=== PATIENT | male | born 1975 | race Caucasian/White ===

== ENCOUNTER 2016-12-31 19:58 | Emergency (ER) | payer BC ==
[2016-12-31 20:09] VITALS: BP 118/75
--- NOTE | 2016-12-31 20:11 | EDM.PDOC ---
ED HPI GENERAL MEDICAL PROBLEM - General Chief Complaint: Lower Extremity Injury/Pain Stated Complaint: Right Hip Pain; no injury Time Seen by Provider: 12/31/16 20:10 Source of Information: Reports: Patient, Family, RN, RN Notes Reviewed History Limitations: Reports: No Limitations - History of Present Illness INITIAL COMMENTS - FREE TEXT/NARRATIVE: Patient presents to the ED at [facility] complaining of significant right hip pain that started about one week ago. Patient denies any injury or trauma. No recent right hip surgeries. Patient states he did see his chiropractor earlier this week. It did seem to help after adjustment for about an hour, but then the pain returned. Patient denies any right lower leg swelling or pain. Pain does not radiate. Pain is a dull ache with no movement. Patient states he does get in and out of a vehicle several times a day. It is painful to walk. He feels the most pain around the greater trochanter area. Patient is currently taking Coumadin for a history of blood clots. Patient states his last INR one week ago was 3.2. Onset: Gradual Duration: Constant, Waxing/Waning Location: Reports: Lower Extremity, Right Quality: Reports: Ache, Throbbing Severity: Moderate Improves with: Reports: Rest Worsens with: Reports: Movement Context: Denies: Activity, Exercise, Lifting, Sick Contact, Trauma Associated Symptoms: Reports: No Other Symptoms Right Hip Pain Score (Numeric/FACES): 8 - Related Data Allergies Allergy/AdvReac Type Severity Reaction Status Date / Time No Known Allergies Allergy Verified 12/31/16 20:11 Home Meds: Home Meds Propranolol [Inderal LA] 160 mg PO DAILY 01/29/16 [History] Rizatriptan Benzoate [Maxalt] 10 mg PO ASDIRECTED PRN 01/29/16 [History] Warfarin [Coumadin] 3 mg PO DAILY 01/29/16 [History] busPIRone [Buspar] 15 mg PO DAILY 01/29/16 [History] Past Medical History Neurological History: Reports: Migraines - Past Surgical History Cardiovascular Surgical History: Reports: Valve Replacement Social & Family History - Family History Family Medical History: Noncontributory - Tobacco Use Smoking Status *Q: Never Smoker Tobacco Use Within Last Twelve Months: No - Tobacco Core Measures Tobacco Use/Smoking Within Last 30 Days: No - Alcohol Use Alcohol Use History: No Alcohol Use in Last Twelve Months: No - Recreational Drug Use Recreational Drug Use: No Drug Use in Last 12 Months: No - Living Situation & Occupation Living situation: Reports: , with Family Occupation: Employed Review of Systems - Review of Systems Review Of Systems: See Below Constitutional: Denies: Chills, Fever, Weakness Respiratory: Denies: Shortness of Breath, Cough Cardiovascular: Denies: Chest Pain, Palpitations Musculoskeletal: Reports: Joint Pain (Right hip), Muscle Pain, Muscle Stiffness. Denies: Leg Pain Skin: Reports: No Symptoms Neurological: Reports: No Symptoms. Denies: Numbness, Paresthesia, Tingling, Difficulty Walking ED EXAM, GENERAL - Physical Exam Exam: See Below Exam Limited By: No Limitations General Appearance: Alert, No Apparent Distress Respiratory/Chest: No Respiratory Distress, Lungs Clear, Normal Breath Sounds Cardiovascular: Regular Rate, Rhythm Peripheral Pulses: 2+: Posterior Tibial (R), Dorsalis Pedis (R) Extremities: Normal Inspection, Limited Range of Motion (Right hip due to pain) , Other (Patient has adequate ROM but is painful in all directions) Neurological: Alert, Oriented Skin Exam: Warm, Dry, Intact, Normal Color, No Rash Course - Vital Signs Last Recorded V/S: Last Vital Signs Temp 37.1 C 12/31/16 20:04 Pulse 69 12/31/16 20:04 Resp 14 12/31/16 20:04 BP 118/75 12/31/16 20:04 Pulse Ox 96 12/31/16 20:04 - Orders/Labs/Meds Orders: Active Orders 24 hr Category Date Time Status Hip Min 2V or 3V Rt [CR] Stat Exams 12/31/16 20:16 Taken Acetaminophen/HYDROcodone [Take Home: Acetam/HYDROcodon Med 12/31/16 21:24 Once 325-5 MG, 5 Pack] 1 packet PO ONETIME ONE Labs: Laboratory Tests 12/31/16 Range/Units 20:45 PT 40.4 H (9.8-11.8) SEC INR 3.9 H (2.0-3.5) Departure - Departure Time of Disposition: 21:13 Disposition: Home, Self-Care 01 Clinical Impression: History of DVT (deep vein thrombosis), Anticoagulant long-term use, Acute right hip pain - Discharge Information Instructions: Hip Pain Referrals: Ginny Donovan MD [Primary Care Provider] - Forms: ED Department Discharge Additional Instructions: 1. Stay well hydrated and rest 2. Alternate heat/ice to right hip at the site of pain 3. May alternate Tylenol/Advil as needed 4. Use narcotic pain medications sparingly 5. Contact Dr. Donovan through [facility] for any concerns - Problem List Review Problem List Initiated/Reviewed/Updated: Yes - My Orders Last 24 Hours: My Active Orders 12/31/16 20:16 Hip Min 2V or 3V Rt [CR] Stat 12/31/16 21:24 Acetaminophen/HYDROcodone [Take Home: Acetam/HYDROcodon 325-5 MG, 5 Pack] 1 packet PO ONETIME ONE - Assessment/Plan Last 24 Hours: My Active Orders 12/31/16 20:16 Hip Min 2V or 3V Rt [CR] Stat 12/31/16 21:24 Acetaminophen/HYDROcodone [Take Home: Acetam/HYDROcodon 325-5 MG, 5 Pack] 1 packet PO ONETIME ONE
[2016-12-31] MEDS ORDERED: Take Home: Acetaminophen/HYDROcodone 325-5 MG, 5 Tab Pack PO ONE (21:24)
== END 2016-12-31 21:32 | disposition home or self-care (01) ==
LOC: VM.ED 19:58
DX: M25.551 Pain in right hip (principal); Z79.899 Other long term (current) drug therapy; Z95.2 Presence of prosthetic heart valve; Z79.01 Long term (current) use of anticoagulants; Z86.718 Personal history of other venous thrombosis and embolism
CPT/HCPCS: 36415; 73502; 85610; 99284; A9270

== ENCOUNTER 2017-07-14 15:52 | Emergency (ER) | payer BC ==
[2017-07-14] MEDS ORDERED: Sodium Chloride 0.9% 10 ML Syringe FLUSH PRN (16:14)
[2017-07-14] MEDS ORDERED: Sodium Chloride 0.9% 1,000 ML IV SCH (16:15)
[2017-07-14 16:24] VITALS: BP 147/84
--- NOTE | 2017-07-14 16:32 | EDM.PDOC ---
ED HPI GENERAL MEDICAL PROBLEM - General Chief Complaint: Neurological Problem Stated Complaint: Dizziness, confusion Time Seen by Provider: 07/14/17 16:12 Source of Information: Reports: Patient, RN, RN Notes Reviewed History Limitations: Reports: No Limitations - History of Present Illness INITIAL COMMENTS - FREE TEXT/NARRATIVE: Patient was at work and states he was having confusion that lasted about one hour. He states he would not remember what he was doing or what day it was. He also complains of a couple episodes of dizziness this morning and during the times of confusion today. He denies loss of consciousness. He denies seizure like activity. He states he was alert the entire time, but was confused. Patient also complains of a dull with tightness headache and points to the temporal region. He does have a history of mechanical heart valve and pacemaker. He states he initially had a porcine heart valve and a pacemaker which got infected and hand the mechanical valve placed. He denies shortness of breath, chest pain, nausea or vomiting. Denies smoking, alcohol, or drug use. Onset: Today Onset Date: 07/14/17 Duration: Hour(s): (lasted about one hour) Associated Symptoms: Reports: Confusion Frontal Headache Pain Score (Numeric/FACES): 1 - Related Data Allergies Allergy/AdvReac Type Severity Reaction Status Date / Time No Known Allergies Allergy Verified 07/14/17 16:07 Home Meds: Home Meds Propranolol [Inderal LA] 160 mg PO DAILY 01/29/16 [History] Rizatriptan Benzoate [Maxalt] 10 mg PO ASDIRECTED PRN 01/29/16 [History] Warfarin [Coumadin] 3 mg PO DAILY 01/29/16 [History] busPIRone [Buspar] 15 mg PO DAILY 01/29/16 [History] Past Medical History Cardiovascular History: Reports: Pacemaker Neurological History: Reports: Migraines Psychiatric History: Reports: Anxiety - Past Surgical History Cardiovascular Surgical History: Reports: Valve Replacement Social & Family History - Family History Family Medical History: Noncontributory - Tobacco Use Smoking Status *Q: Never Smoker - Recreational Drug Use Recreational Drug Use: No Drug Use in Last 12 Months: No - Living Situation & Occupation Living situation: Reports: , with Family Occupation: Employed ED ROS GENERAL - Review of Systems Review Of Systems: See Below Constitutional: Reports: No Symptoms HEENT: Reports: No Symptoms Respiratory: Reports: No Symptoms Cardiovascular: Reports: No Symptoms Endocrine: Reports: No Symptoms GI/Abdominal: Reports: No Symptoms : Reports: No Symptoms Musculoskeletal: Reports: No Symptoms Skin: Reports: No Symptoms Neurological: Reports: Confusion, Dizziness, Headache. Denies: Numbness, Paresthesia, Syncope, Tingling, Trouble Speaking, Difficulty Walking, Weakness, Gait Disturbance Psychiatric: Reports: No Symptoms Hematologic/Lymphatic: Reports: Other (On coumadin for mechanica valve) ED EXAM, NEURO - Physical Exam Exam: See Below Exam Limited By: No Limitations General Appearance: Alert, No Apparent Distress Eye Exam: Bilateral Eye: EOMI, Normal Inspection, PERRL Ears: Normal External Exam, Normal Canal, Hearing Grossly Normal, Normal TMs Throat/Mouth: Normal Inspection, Normal Oropharynx Head Exam: Atraumatic, Normocephalic Neck: Normal Inspection, Supple, Non-Tender, Full Range of Motion Respiratory/Chest: No Respiratory Distress, Lungs Clear, Normal Breath Sounds, Chest Non-Tender Cardiovascular: Regular Rate, Rhythm, No Edema, Systolic Murmur, Other ( mechanical heart valve clicking) GI/Abdominal: Normal Bowel Sounds, Soft, Non-Tender, No Organomegaly, No Distention Neurological: Alert, Normal Mood/Affect, Normal Gait, No Motor/Sensory Deficits , Oriented x 3 Extremities: No Pedal Edema, Normal Capillary Refill Psychiatric: Normal Affect, Normal Mood Skin Exam: Warm, Dry, Intact, Normal Color Course - Vital Signs Last Recorded V/S: Last Vital Signs Temp 35.5 C 07/14/17 15:52 Pulse 60 07/14/17 15:52 Resp 16 07/14/17 15:52 BP 147/84 H 07/14/17 15:52 Pulse Ox 99 07/14/17 15:52 - Orders/Labs/Meds Orders: Active Orders 24 hr Category Date Time Status EKG Documentation Completion [RC] STAT Care 07/14/17 16:14 Active Head wo Cont [CT] Stat Exams 07/14/17 17:41 Taken Sodium Chloride 0.9% [Normal Saline] 1,000 ml Med 07/14/17 16:15 Active IV ASDIRECTED Sodium Chloride 0.9% [Saline Flush] Med 07/14/17 16:14 Active 10 ml FLUSH ASDIRECTED PRN Saline Lock Insert [OM.PC] Routine Oth 07/14/17 16:14 Ordered Medication Orders Sodium Chloride (Normal Saline) 1,000 mls @ 999 mls/hr IV ASDIRECTED BLOSSOM Last Admin: 07/14/17 16:30 Dose: 999 mls/hr Sodium Chloride (Saline Flush) 10 ml FLUSH ASDIRECTED PRN PRN Reason: Keep Vein Open Labs: Laboratory Tests 07/14/17 07/14/17 07/14/17 Range/Units 16:25 16:25 16:25 WBC 7.3 (4.0-10.0) x10^3/uL RBC 4.78 (4.5-6.0) x10^6/uL Hgb 14.0 (14.0-18.0) g/dL Hct 42.0 (40.0-52.0) % MCV 87.9 (78.0-93.0) fL MCH 29.3 (26.0-32.0) pg MCHC 33.3 (32.0-36.0) g/dL RDW Coeff of Edis 14.7 (10.0-15.0) % Plt Count 312 (130-400) x10^3/uL Neut % (Auto) 68.6 (50.0-80.0) % Lymph % (Auto) 20.1 L (25.0-50.0) % [place] % (Auto) 10.0 (2.0-11.0) % Eos % (Auto) 1.0 (0.0-4.0) % Baso % (Auto) 0.3 (0.2-1.2) % PT 30.5 H (9.8-11.8) SEC INR 2.9 (2.0-3.5) Sodium 143 (136-145) mmol/L Potassium 4.3 (3.5-5.1) mmol/L Chloride 105 (98-107) mmol/L Carbon Dioxide 30 (21-32) mmol/L BUN 16 (7-18) mg/dL Creatinine 0.9 (0.70-1.30) mg/dL Est Cr Clr Drug Dosing 105.00 mL/min Estimated GFR (MDRD) > 60 Glucose 92 (74-106) mg/dL Lactic Acid (0.4-2.0) mmol/L Calcium 8.7 (8.5-10.1) mg/dL Corrected Calcium 8.86 (8.5-10.1) mg/dL Total Bilirubin 0.5 (0.2-1.0) mg/dL AST 24 (15-37) U/L ALT 32 (16-63) U/L Alkaline Phosphatase 84 (46-116) U/L C-Reactive Protein 0.4 (<=0.9) mg/dL Total Protein 7.0 (6.4-8.2) g/dL Albumin 3.8 (3.4-5.0) g/dL Globulin 3.2 Albumin/Globulin Ratio 1.19 Urine Color (YELLOW) Urine Appearance (CLEAR) Urine pH (5.0-8.0) Ur Specific M[place] Urine Protein (NEGATIVE) mg/dL Urine Glucose (UA) (NEGATIVE) mg/dL Urine Ketones (NEGATIVE) mg/dL Urine Occult Blood (NEGATIVE) Urine Nitrite (NEGATIVE) Urine Bilirubin (NEGATIVE) Urine Urobilinogen (0.2) EU/dL Ur Leukocyte Esterase (NEGATIVE) Urine RBC (NOT SEEN) /HPF Urine WBC (NOT SEEN) /HPF Ur Squamous Epith Cells (NEGATIVE) /HPF Urine Bacteria (NEGATIVE) /HPF Urine Mucus (NEGATIVE) /LPF 07/14/17 07/14/17 Range/Units 16:25 17:44 WBC (4.0-10.0) x10^3/uL RBC (4.5-6.0) x10^6/uL Hgb (14.0-18.0) g/dL Hct (40.0-52.0) % MCV (78.0-93.0) fL MCH (26.0-32.0) pg MCHC (32.0-36.0) g/dL RDW Coeff of Edis (10.0-15.0) % Plt Count (130-400) x10^3/uL Neut % (Auto) (50.0-80.0) % Lymph % (Auto) (25.0-50.0) % [place] % (Auto) (2.0-11.0) % Eos % (Auto) (0.0-4.0) % Baso % (Auto) (0.2-1.2) % PT (9.8-11.8) SEC INR (2.0-3.5) Sodium (136-145) mmol/L Potassium (3.5-5.1) mmol/L Chloride (98-107) mmol/L Carbon Dioxide (21-32) mmol/L BUN (7-18) mg/dL Creatinine (0.70-1.30) mg/dL Est Cr Clr Drug Dosing mL/min Estimated GFR (MDRD) Glucose (74-106) mg/dL Lactic Acid 0.5 (0.4-2.0) mmol/L Calcium (8.5-10.1) mg/dL Corrected Calcium (8.5-10.1) mg/dL Total Bilirubin (0.2-1.0) mg/dL AST (15-37) U/L ALT (16-63) U/L Alkaline Phosphatase (46-116) U/L C-Reactive Protein (<=0.9) mg/dL Total Protein (6.4-8.2) g/dL Albumin (3.4-5.0) g/dL Globulin Albumin/Globulin Ratio Urine Color Yellow (YELLOW) Urine Appearance Clear (CLEAR) Urine pH 6.0 (5.0-8.0) Ur Specific [place] 1.015 Urine Protein Negative (NEGATIVE) mg/dL Urine Glucose (UA) Negative (NEGATIVE) mg/dL Urine Ketones Negative (NEGATIVE) mg/dL Urine Occult Blood Negative (NEGATIVE) Urine Nitrite Negative (NEGATIVE) Urine Bilirubin Negative (NEGATIVE) Urine Urobilinogen 0.2 (0.2) EU/dL Ur Leukocyte Esterase Negative (NEGATIVE) Urine RBC 0-5 (NOT SEEN) /HPF Urine WBC 0-5 (NOT SEEN) /HPF Ur Squamous Epith Cells Not seen (NEGATIVE) /HPF Urine Bacteria Rare (NEGATIVE) /HPF Urine Mucus Rare H (NEGATIVE) /LPF Meds: Medications Generic Name Dose Route Start Last Admin Trade Name Freq PRN Reason Stop Dose Admin Sodium Chloride 1,000 mls @ 999 mls/hr 07/14/17 16:15 07/14/17 16:30 Normal Saline IV 999 mls/hr ASDIRECTED BLOSSOM Administration Sodium Chloride 10 ml 07/14/17 16:14 Saline Flush FLUSH ASDIRECTED PRN Keep Vein Open - Re-Assessments/Exams Free Text/Narrative Re-Assessment/Exam: 07/14/17 18:43 Review of labs with patient. Laboratory findings all are normal. No electrolyte changes. EKG reviewed, no ST changes, atrial and ventricular pacing spikes are noted. Head CT shows a 18 x 9 mm CSF density focus to the right occipital lobe. Departure - Departure Time of Disposition: 19:12 Disposition: Home, Self-Care 01 Condition: Good Clinical Impression: Confusion - Discharge Information Instructions: Confusion Referrals: Ginny Donovan MD [Primary Care Provider] - Forms: ED Department Discharge Additional Instructions: 1. Follow up with your primary care provider. 2. Stay well hydrated. 3. Do not drive until your follow up appointment with your PCP. 4. Return if symptoms persist or worsen. 5. Call with any questions or concerns. - Problem List & Annotations (1) Confusion SNOMED Code(s): 778105233 Code(s): R41.0 - DISORIENTATION, UNSPECIFIED Status: Acute Priority: Low Current Visit: Yes - Problem List Review Problem List Initiated/Reviewed/Updated: Yes - My Orders Last 24 Hours: My Active Orders 07/14/17 16:14 EKG Documentation Completion [RC] STAT Sodium Chloride 0.9% [Saline Flush] 10 ml FLUSH ASDIRECTED PRN Saline Lock Insert [OM.PC] Routine 07/14/17 16:15 Sodium Chloride 0.9% [Normal Saline] 1,000 ml IV ASDIRECTED 07/14/17 17:41 Head wo Cont [CT] Stat - Assessment/Plan Last 24 Hours: My Active Orders 07/14/17 16:14 EKG Documentation Completion [RC] STAT Sodium Chloride 0.9% [Saline Flush] 10 ml FLUSH ASDIRECTED PRN Saline Lock Insert [OM.PC] Routine 07/14/17 16:15 Sodium Chloride 0.9% [Normal Saline] 1,000 ml IV ASDIRECTED 07/14/17 17:41 Head wo Cont [CT] Stat Assessment:: Confusion Plan: 1. Follow up with your primary care provider. 2. Stay well hydrated. 3. Do not drive until your follow up appointment with your PCP. 4. Return if symptoms persist or worsen. 5. Call with any questions or concerns.
[2017-07-14 16:55] LABS: CHLORIDE,CL 105 mmol/L (98-107); SODIUM,NA 143 mmol/L (136-145)
== END 2017-07-14 19:15 | disposition home or self-care (01) ==
LOC: VM.ED 15:52
DX: R41.0 Disorientation, unspecified (principal); Z79.899 Other long term (current) drug therapy; Z79.01 Long term (current) use of anticoagulants
CPT/HCPCS: 36415; 70450; 80053; 81001; 83605; 85025; 85610; 86140; 93005; 96360; 99285; J7030